=== PATIENT | male | born 1995 ===

== ENCOUNTER 2019-08-22 19:30 | Outpatient (CLI) | payer OTHER | END 2019-08-22 19:31 | disposition home or self-care (01) | LOC: SLEEPLAB 19:30 | PROVIDERS: ATTEND Otolaryngology Plastic Surgery within the Head & Neck | DX: G47.33 Obstructive sleep apnea (adult) (pediatric) (principal); R06.83 Snoring; G47.10 Hypersomnia, unspecified; I49.1 Atrial premature depolarization | CPT/HCPCS: 95810 ==